=== PATIENT | male | born 1940 | race African-American/Black ===

== ENCOUNTER 2017-10-24 14:30 | Emergency (ER) | payer MEDICARE, MEDICAID ==
[~2017-10-24] VITALS: Ht 180.3 cm; Wt 70.0 kg
[2017-10-24] MEDS ORDERED: SODIUM CHLORIDE 0.9% 1,000 ML IV ONE (14:39)
[2017-10-24 15:08] LABS: HEMATOCRIT. 29.7 % (42.0-52.0); MEAN CORPUSCULAR HEMOGLOBIN 22.5 pg (28.0-32.0); MEAN CORPUSCULAR VOLUME 73.9 fL (80.0-94.0); MEAN PLATELET VOLUME 9.1 fl (7.4-10.4); PLATELET 289 x1000/uL (130-400); RED BLOOD CELL COUNT 4.01 mill/uL (4.7-6.1); RED CELL DISTRIBUTION WIDTH 25.9 % (11.6-14.6)
[2017-10-24 15:15] LABS: CHLORIDE 109 mEq/L (98-107)
[2017-10-24 15:29] LABS: CARBON DIOXIDE 26 mEq/L (21-32); ETHANOL BLOOD < 10 mg/dL
[2017-10-24 15:30] LABS: PLATELET ESTIMATE NORMAL
[2017-10-24 15:32] LABS: CARBAMAZEPINE < 0.5 ug/mL (4-12); PHENOBARBITAL < 2.1 ug/mL (15.0-40.0)
[2017-10-24] MEDS ORDERED: PHENYTOIN SODIUM 1,000 MG in SODIUM CHLORIDE 0.9% 100 ML IV ONE (15:45)
[2017-10-24 15:54] LABS: VALPROIC ACID < 3.0 ug/mL (50-100)
[2017-10-24 18:12] LABS: CLARITY URINE CLEAR (CLEAR); COLOR URINE YELLOW (YELLOW); KETONES URINE NEGATIVE (NEGATIVE); LEUKOCYTE ESTERASE URINE NEGATIVE (NEGATIVE); NITRITE URINE NEGATIVE (NEGATIVE); OCCULT BLOOD URINE NEGATIVE (NEGATIVE); PH URINE 7.5 (4.5-8.0); PROTEIN URINE NEGATIVE (NEGATIVE); SPECIFIC GRAVITY URINE 1.014 (1.005-1.030)
[2017-10-24 18:23] LABS: *AMPHETAMINES SCREEN URINE NEGATIVE (NEGATIVE); *BARBITURATES SCREEN URINE NEGATIVE (NEGATIVE); *BENZODIAZEPINES SCREEN URINE NEGATIVE (NEGATIVE); *COCAINE SCREEN URINE NEGATIVE (NEGATIVE); CANNABINOID URINE SCREEN NEGATIVE (NEGATIVE); METHADONE URINE SCREEN NEGATIVE (NEGATIVE); OPIATES URINE SCREEN NEGATIVE (NEGATIVE); PHENCYCLIDINE URINE SCREEN NEGATIVE (NEGATIVE)
[2017-10-24 20:20] VITALS: BP 124/50
== END 2017-10-24 20:55 | disposition home or self-care (01) ==
LOC: ER 14:51 → EDBD 14:51 → ER 20:55
DX: G40.909 Epilepsy, unspecified, not intractable, without status epilepticus (principal); Z91.14 Patient's other noncompliance with medication regimen; R03.0 Elevated blood-pressure reading, without diagnosis of hypertension; R00.0 Tachycardia, unspecified; R94.31 Abnormal electrocardiogram [ECG] [EKG]
CPT/HCPCS: 36415; 71045; 80053; 80156; 80165; 80184; 80185; 80305; 81003; 85025; 93005; 96361; 96365; 99285; G0482; J1165; J7030; J7050